=== PATIENT | male | born 1950 | race Caucasian/White ===

== ENCOUNTER 2018-08-24 08:16 | Emergency (ER) | payer OTHER ==
[~2018-08-24] VITALS: Ht 172.7 cm; Wt 99.8 kg
[~2018-08-24 08:16] MED LIST: NITROSTAT0.4 MG SL; ZESTRIL40 MG PO
[2018-08-24] MEDS ORDERED: LIPITOR20 MG (08:45)
[2018-08-24] MEDS ORDERED: HYDROCHLOROTH12.5 M1 PO (08:46)
[2018-08-24] MEDS ORDERED: MOBIC15 MG PO (08:46)
[2018-08-24] MEDS ORDERED: METOPROLOL SUCC25 MG PO (08:46)
[2018-08-24] MEDS ORDERED: OMEPRAZOLE20 MG PO (08:47)
[2018-08-24] MEDS ORDERED: AMLODIPINE BESY10 MG PO (08:47)
[2018-08-24] MEDS ORDERED: CIPRO500 MG PO (12:05)
[2018-08-24] MEDS ORDERED: FLAGYL500 MG PO (12:05)
== END 2018-08-24 12:26 | disposition home or self-care (01) ==
LOC: ED 08:16
DX: K52.9 Noninfective gastroenteritis and colitis, unspecified (principal); I10 Essential (primary) hypertension; E78.5 Hyperlipidemia, unspecified; Z86.19 Personal history of other infectious and parasitic diseases; Z88.0 Allergy status to penicillin; Z79.899 Other long term (current) drug therapy
CPT/HCPCS: 74177; 80053; 81001; 83605; 83690; 85025; 96361; 96374; 96375; 99284-25; J2270; J2405; J7030; Q9967

== ENCOUNTER 2018-11-11 07:02 | Day surgery (SDC) | payer OTHER ==
[~2018-11-11] VITALS: Ht 170.2 cm; Wt 98.4 kg
[~2018-11-11 07:02] MED LIST changes: +AMLODIPINE BESY10 MG PO; +CIPRO500 MG PO; +FLAGYL500 MG PO; +HYDROCHLOROTH12.5 M1 PO; +LIPITOR20 MG PO; +METOPROLOL SUCC25 MG PO; +MOBIC15 MG PO; +OMEPRAZOLE20 MG PO
--- NOTE | 2018-11-11 08:59 | NUR ---
11/11/18 0859 Sunshine Walker 0851 PT TO PACU SLEEPY BUT AROUSABLE DENIES PAIN
--- NOTE | 2018-11-12 05:51 | OR ---
[facility] [address] [place], [place] [address] Signed DATE OF OPERATION: 11/11/2018 SURGEON: Wilian Blackwell MD PREOPERATIVE DIAGNOSES: 1. Unspecified right-sided colitis (August 24, 2018). 2. Mother with a history of colonic polyps in her 50s. 3. Chronic constipation, diarrhea. POSTOPERATIVE DIAGNOSES: 1. A 4 mm rectal polyps x4 in mid rectum. 2. A 5 mm polyp at 20 cm. 3. A 5 mm polyp at 30 cm. 4. A 4 mm polyp at proximal right colon. 5. A 5 mm polyp at 65 cm. 6. A 4 mm polyp at 18 cm (rectosigmoid junction). 7. Minimal to moderate internal and external hemorrhoids. 8. No evidence of right-sided colitis. PROCEDURES: Colonoscopy with hot biopsy and cold biopsies of the right colon. ESTIMATED BLOOD LOSS: None. INDICATIONS: Vimal is a 67-year-old gentleman from [facility] [place]. On August 24, 2018, he went to the [facility] Emergency Room for right-sided abdominal pain. He had some nausea and vomiting for [address] scan showed some focal inflammation and pericolonic inflammation of the cecum and ascending colon. The appendix was unremarkable. He does have an appendicolith. The terminal ilium was unremarkable. The surrounding lymph nodes were unremarkable. He was sent back to the [facility] with Cipro and Flagyl. Overall, he is feeling a little better. He was asked to see me for a colonoscopy. He also told me that his mother developed colonic polyps in her 50s. He also told me his psverh-gg-yep had colon cancer. He said he has never had a previous colonoscopy. He is not aware of any inflammatory bowel disease in the family. He said overall he feels a little better. He is not sure the pain has completely gone. He told me after the bowel prep, though he felt like the pain might be completely gone. I explained to Vimal the nature of a colonoscopy. He understands the risks including, but not limited to gas bloating, Electronically Signed By: WILIAN BLACKWELL MD 11/12/18 0551 PATIENT NAME: VIMAL BRITT OPERATIVE REPORT DATE OF : 52 REPORT #: [id number] PHYSICIAN: WILIAN BLACKWELL MD PCP: CARIDAD LINDER MD REPORT IS CONFIDENTIAL AND NOT TO BE RELEASED WITHOUT AUTHORIZATION [address] [address] Signed crampy abdominal pain, bleeding, perforation, requiring surgery, and missed diagnosis. He also understands the need for IV conscious sedation. He had expressed understanding wished to proceed. PROCEDURE NOTE: Vimal was taken into our endoscopy suite and placed in the left lateral decubitus position. He was given IV sedation with 8 mg of Versed and 150 mcg of fentanyl to cover the case. A digital rectal exam was performed. He does have minimal to moderate external hemorrhoids. Good sphincter tone. His prostate is not particularly enlarged but is a little indurated at his age. The adult colonoscope was introduced and advanced all around into the cecum under direct visualization of camera without difficulty. His prep was quite good. The scope was slowly withdrawn. We had made multiple attempts to pass the camera into the terminal ileum without success. We took several biopsies in the right colon for pathologic review given his previous self-limiting unspecified right-sided colitis. We saw no evidence of any inflammation in the cecum right colon or the remainder of the colon or rectum during the procedure. The above-mentioned polyps were all removed without difficulty with the help of hot biopsy forceps. There was no diverticulosis. The rectum was unremarkable other than the polyps. Upon retroflexion of scope he does have minimal to moderate internal standard hemorrhoids as well. After this, the gas was suctioned out, colonoscope removed. Vimal tolerated the procedure quite well. RECOMMENDATIONS: I will see Vimal back in 30 to 60 days for followup. He can resume his chronic medications and diet. Wilian Blackwell MD [facility]/MODL /[id number] cc: MD Wilian Daniels MD Electronically Signed By: WILIAN BLACKWELL MD 11/12/18 0551 PATIENT NAME: VIMAL BRITT OPERATIVE REPORT DATE OF : 52 REPORT #: [id number] PHYSICIAN: WILIAN BLACKWELL MD PCP: CARIDAD LINDER MD REPORT IS CONFIDENTIAL AND NOT TO BE RELEASED WITHOUT AUTHORIZATION [address] [address] Signed Copies: STACI JACKSON MD, ANDREW L MD ~ Electronically Signed By: WILIAN BLACKWELL MD 11/12/18 0551 PATIENT NAME: VIMAL BRITT OPERATIVE REPORT DATE OF : 52 REPORT #: [id number] PHYSICIAN: WILIAN BLACKWELL MD PCP: CARIDAD LINDER MD REPORT IS CONFIDENTIAL AND NOT TO BE RELEASED WITHOUT AUTHORIZATION
== END 2018-11-11 09:35 | disposition home or self-care (01) ==
LOC: OPS 07:02 → DS 07:04 → OPS 08:15
PROVIDERS: Colon & Rectal Surgery
PROC: 0DBE8ZX Excision of Large Intestine, Via Natural or Artificial Opening Endoscopic, Diagnostic (ICD-10-PCS; 2018-11-11)
PROC: 0DBP8ZX Excision of Rectum, Via Natural or Artificial Opening Endoscopic, Diagnostic (ICD-10-PCS; 2018-11-11)
PROC: 0DBF8ZX Excision of Right Large Intestine, Via Natural or Artificial Opening Endoscopic, Diagnostic (ICD-10-PCS; principal; 2018-11-11 08:15)
DX: D12.6 Benign neoplasm of colon, unspecified (principal); K62.1 Rectal polyp; K63.5 Polyp of colon; K64.8 Other hemorrhoids; K64.4 Residual hemorrhoidal skin tags; K52.9 Noninfective gastroenteritis and colitis, unspecified; I10 Essential (primary) hypertension; E78.5 Hyperlipidemia, unspecified; Z88.0 Allergy status to penicillin; Z88.7 Allergy status to serum and vaccine; Z79.899 Other long term (current) drug therapy; Z86.010 Personal history of colon polyps
CPT/HCPCS: J2250; J3010; J7120

== ENCOUNTER 2020-08-18 13:37 | Emergency (ER) | payer OTHER ==
[~2020-08-18] VITALS: Ht 170.2 cm; Wt 79.4 kg
[2020-08-18] MEDS ORDERED: PROPRANOLOL HCL40 MG PO (18:07)
[2020-08-18] MEDS ORDERED: CLARITIN10 M2 PO (18:12)
== END 2020-08-18 18:23 | disposition home or self-care (01) ==
LOC: ED 13:37
DX: S50.01XA Contusion of right elbow, initial encounter (principal); S00.93XA Contusion of unspecified part of head, initial encounter; H83.02 Labyrinthitis, left ear; W01.198A Fall on same level from slipping, tripping and stumbling with subsequent striking against other object, initial encounter; I10 Essential (primary) hypertension; Z88.0 Allergy status to penicillin; Z88.7 Allergy status to serum and vaccine; Z79.899 Other long term (current) drug therapy
CPT/HCPCS: 70450; 73080; 73560; 80053; 83735; 84484; 85025; 99284-25

== ENCOUNTER 2024-08-12 09:48 | Emergency (ER) | payer OTHER ==
[~2024-08-12] VITALS: Ht 170.2 cm; Wt 100.2 kg
[~2024-08-12 09:48] MED LIST changes: +ALEVE ARTHRITI100 GM TP; +CLARITIN10 M2 PO; +MAGNESIUM OXID250 MG PO; +PROPRANOLOL HCL40 MG PO
[2024-08-12 10:20] LABS: BASOPHILS 0.5 % (0-2); HEMOGLOBIN 13.2 g/dL (12.0-18.0); LYMPHOCYTES 31.5 % (24-44); MCH 32.4 (27-36); MCHC 34.9 g/dl (30-36); MONOCYTES 11.2 % (0-12); NEUTROPHILS 54.8 % (39-80); PLATELET COUNT 192 K/uL (140-440); RBC 4.08 M/ul (4.3-5.7)
[2024-08-12 10:42] LABS: ALBUMIN 4.1 g/dL (3.4-5.0); ALBUMIN/GLOBULIN RATIO 1.11 (1.1-2.4); ANION GAP 12.2 (7-21); BILIRUBIN, TOTAL 0.6 ng/dL (0.2-1.0); BUN/CREATININE RATIO 16.21 (6.0-28.6); CALCIUM 9.2 mg/dL (8.5-10.1); CREATININE, SERUM 1.11 mg/dL (0.70-1.30); POTASSIUM 4.2 mmol/L (3.5-5.1); PROTEIN, TOTAL 7.8 g/dL (6.4-8.2)
[2024-08-12 10:42] LABS: INR 1.03 (0.80-1.30); PROTIME 13.4 Sec (11.2-14.2)
[2024-08-12 10:44] LABS: PARTIAL THROMBOPLASTIN TIME 25.9 Sec (22.9-41.3)
[2024-08-12] MEDS ORDERED: ACETAMINOPHEN 500 MG TAB PO ONE (11:00)
[2024-08-12] MEDS ORDERED: ASPIRIN 81 MG CHEW PO ONE (11:00)
[2024-08-12 11:34] LABS: AMPHETAMINES, URINE NEGATIVE (NEGATIVE); BARBITURATES, URINE NEGATIVE (NEGATIVE); BENZODIAZEPINE, URINE NEGATIVE (NEGATIVE); BUPRENORPHINE, URINE NEGATIVE (NEGATIVE); CANNABINOID, URINE NEGATIVE (NEGATIVE); COCAINE, URINE NEGATIVE (NEGATIVE); ECSTASY, URINE NEGATIVE (NEGATIVE); FENTANYL, URINE NEGATIVE (NEGATIVE); METHADONE, URINE NEGATIVE (NEGATIVE); OPIATES, URINE NEGATIVE (NEGATIVE); OXYCODONE, URINE NEGATIVE (NEGATIVE); PHENCYCLIDINE, URINE NEGATIVE (NEGATIVE)
[2024-08-12] MEDS ORDERED: NORVASC5 MG PO ×2 (12:23→14:03)
[2024-08-12] MEDS ORDERED: FERROUS SULFAT324 MG PO (12:23)
[2024-08-12] MEDS ORDERED: OMEPRAZOLE20 MG PO (12:23)
[2024-08-12] MEDS ORDERED: AMLODIPINE BESYLATE 5 MG TAB PO ONE (12:30)
[2024-08-12] MEDS ORDERED: lisinopriL 20 MG TAB PO ONE (12:30)
[2024-08-12] MEDS ORDERED: MECLIZINE HCL25 MG PO (14:03)
[2024-08-12] MEDS ORDERED: LISINOPRIL20 MG PO (14:03)
[2024-08-12 14:20] VITALS: BP 143/92
--- NOTE | 2024-08-12 20:37 | EKG ---
[facility] [address] [facility] [place] [address] Signed Normal sinus rhythm Low voltage QRS Borderline ECG When compared with ECG of 09-MAR-2024 09:13, No significant change was found Confirmed by Tahira Mills DO ([id number]) on 08/12/2024 8:37:32 PM Electronically Signed By: TAHIRA MILLS DO 08/12/242036 PATIENT NAME: BRITTVIMAL Electrocardiogram DATE OF : 52 PHYSICIAN: TAHIRA MILLS DO REPORT #: [id number] REPORT IS CONFIDENTIAL AND NOT TO BE RELEASED WITHOUT AUTHORIZATION
== END 2024-08-12 14:16 | disposition other institution, planned readmission (95) ==
LOC: ED 09:48
PROVIDERS: Emergency Medicine
DX: R42 Dizziness and giddiness (principal); I10 Essential (primary) hypertension; Z86.19 Personal history of other infectious and parasitic diseases; Z88.0 Allergy status to penicillin; Z79.899 Other long term (current) drug therapy
CPT/HCPCS: 36415; 70450; 70496; 70498; 71045; 80053; 80307; 84484; 85025; 85610; 85730; 93005; 93010; 99285-25; A9270; G0480; Q9967